=== PATIENT | female | born 1990 | race Caucasian/White ===

== ENCOUNTER → 2025-01-10 11:03 | Outpatient (REF) | payer BC, SELFPAY | LOC: REG 11:03 | PROVIDERS: ATTENDING PHYSICIAN Pediatrics Neonatal-Perinatal Medicine; FAMILY PHYSICIAN Family Medicine | DX: P61.3 Congenital anemia from fetal blood loss (principal) | CPT/HCPCS: 36415; 86850; 86870; 86900; 86901 ==